=== PATIENT | male | born 1970 | race Caucasian/White ===

== ENCOUNTER 2023-02-05 17:22 | Emergency (ER) | payer OTHER ==
[~2023-02-05] VITALS: Ht 177.8 cm; Wt 93.4 kg
== END 2023-02-05 19:23 | disposition home or self-care (01) ==
LOC: ED 17:22
DX: M25.532 Pain in left wrist (principal); Z90.49 Acquired absence of other specified parts of digestive tract; Z87.891 Personal history of nicotine dependence

== ENCOUNTER 2023-03-07 12:27 | Emergency (ER) | payer OTHER ==
[~2023-03-07] VITALS: Ht 175.2 cm; Wt 97.5 kg
[2023-03-07] MEDS ORDERED: CYCLOBENZAPRINE5 M3 PO ×2 (13:47→14:05)
== END 2023-03-07 13:56 | disposition home or self-care (01) ==
LOC: ED 12:27
DX: M54.32 Sciatica, left side (principal); Z90.49 Acquired absence of other specified parts of digestive tract; Z98.890 Other specified postprocedural states

== ENCOUNTER → 2023-09-14 | Outpatient (CLI) | payer OTHER ==
[~2023-09-14] MED LIST: CYCLOBENZAPRINE5 M3 PO
[2023-09-14 15:09] LABS: BASO # 0.1 10*3/uL (0.0-0.1); BASO % 1.2 % (0.0-1.0); EOS # 0.2 10*3/uL (0.0-0.4); HEMATOCRIT 45.2 % (42.0-52.0); LYMPH # 3.4 10*3/uL (1.3-4.4); LYMPH % 30.8 % (27.0-41.0); MEAN CELL VOLUME 96.2 fl (80.0-94.0); MEAN CORPUSCULAR HGB 32.8 pg (27.0-31.0); MEAN CORPUSCULAR HGB CONC 34.1 g/dl (33.0-37.0); MEAN PLATELET VOLUME 10.5 fl (9.6-12.3); MONO # 0.8 10*3/uL (0.1-1.0); MONO % 7.1 % (3.0-9.0); NEUT # 6.5 10*3/uL (2.3-7.9); NEUT % 58.5 % (47.0-73.0); PLATELET COUNT AUTOMATED 228 10*3/uL (130-400); RED CELL DISTRI WIDTH 13.6 % (0-14.5)
[2023-09-14 15:40] LABS: ALKALINE PHOSPHATASE 88 U/L (46-116); BUN 8 mg/dl (9-23); CHLORIDE 107 mmol/L (98-107); CHOLESTEROL 149 mg/dL (<200); LDL CHOLESTEROL 95 mg/dL (9-159); POTASSIUM 3.9 mmol/L (3.4-5.1); SGPT/ALT 18 U/L (5-49); TOTAL PROTEIN 7.4 gm/dL (6.0-8.0); TRIGLYCERIDES 62 mg/dl (<150)
[2023-09-14 15:41] LABS: VITAMIN D, 25-HYDROXY 27.6 ng/mL (30-100)
== END | disposition home or self-care (01) ==
LOC: LAB 14:45
PROVIDERS: ATTEND Internal Medicine
DX: R07.81 Pleurodynia (principal); M25.532 Pain in left wrist; M25.552 Pain in left hip; E66.9 Obesity, unspecified; Z00.00 Encounter for general adult medical examination without abnormal findings; E56.9 Vitamin deficiency, unspecified

== ENCOUNTER → 2023-10-16 | Outpatient (CLI) | payer OTHER | END | disposition home or self-care (01) | LOC: RAD 12:21 | PROVIDERS: ATTEND Internal Medicine | DX: M25.532 Pain in left wrist (principal) ==

== ENCOUNTER → 2023-10-28 | Outpatient (CLI) | payer OTHER | LOC: CT 08:29 | PROVIDERS: ATTEND Internal Medicine | DX: S52.615D Nondisplaced fracture of left ulna styloid process, subsequent encounter for closed fracture with routine healing (principal); M25.532 Pain in left wrist; X58.XXXD Exposure to other specified factors, subsequent encounter ==

== ENCOUNTER 2023-12-30 21:50 | Emergency (ER) | payer OTHER ==
[~2023-12-30] VITALS: Ht 180.3 cm; Wt 90.7 kg
[2023-12-30] MEDS ORDERED: Cyclobenzaprine Hydrochlorid 10 MG TAB PO ONE (22:20)
[2023-12-30] MEDS ORDERED: LIDOCAINE 1 EA PATCH T ONE (22:20)
[2023-12-30] MEDS ORDERED: Dexamethasone Sodium Phospha 20 MG/5 ML VIAL IM ONE (22:20)
[2023-12-30] MEDS ORDERED: MEDROL DOSEPAK4 MG PO (23:40)
[2023-12-30] MEDS ORDERED: CYCLOBENZAPRINE5 M3 PO (23:40)
== END 2023-12-31 00:03 | disposition home or self-care (01) ==
LOC: ED 21:50
DX: M62.838 Other muscle spasm (principal); Z90.49 Acquired absence of other specified parts of digestive tract; Z87.891 Personal history of nicotine dependence

== ENCOUNTER → 2024-03-26 | Outpatient (CLI) | payer OTHER ==
[~2024-03-26] MED LIST changes: +MEDROL DOSEPAK4 MG PO
== END | disposition home or self-care (01) ==
LOC: RAD 12:22
PROVIDERS: ATTEND Internal Medicine
DX: R05.9 Cough, unspecified (principal)

== ENCOUNTER 2024-04-03 00:46 | Emergency (ER) | payer OTHER ==
[~2024-04-03] VITALS: Wt 90.7 kg
[2024-04-03 01:12] LABS: BASO # 0.1 10*3/uL (0.0-0.1); BASO % 1.3 % (0.0-1.0); EOS # 0.2 10*3/uL (0.0-0.4); EOS % 2.4 % (1.0-4.0); HEMATOCRIT 47.6 % (42.0-52.0); MEAN CORPUSCULAR HGB 32.4 pg (27.0-31.0); MEAN CORPUSCULAR HGB CONC 32.4 g/dl (33.0-37.0); MEAN PLATELET VOLUME 10.8 fl (9.6-12.3); MONO # 0.8 10*3/uL (0.1-1.0); MONO % 9.2 % (3.0-9.0); NEUT # 4.9 10*3/uL (2.3-7.9); NEUT % 56.6 % (47.0-73.0); PLATELET COUNT AUTOMATED 220 10*3/uL (130-400); RED BLOOD COUNT 4.76 10*6/uL (4.50-5.90); RED CELL DISTRI WIDTH 13.5 % (0-14.5); WHITE BLOOD COUNT 8.7 10*3/uL (4.8-10.8)
[2024-04-03 01:23] LABS: ACT PARTIAL THROMBO TIME 29.1 SECONDS (20.0-32.1)
[2024-04-03 01:33] LABS: ALKALINE PHOSPHATASE 93 U/L (46-116); BUN 5 mg/dl (9-23); CHLORIDE 106 mmol/L (98-107); POTASSIUM 3.8 mmol/L (3.4-5.1); SGPT/ALT 16 U/L (5-49); TOTAL PROTEIN 7.2 gm/dL (6.0-8.0)
[2024-04-03] MEDS ORDERED: methylPREDNISolone sod succ 125 MG VIAL IV ONE (04:30)
[2024-04-03] MEDS ORDERED: PREDNISONE20 M1 PO (04:32)
[2024-04-03] MEDS ORDERED: ZITHROMAX250 MG PO (04:32)
== END 2024-04-03 04:54 | disposition home or self-care (01) ==
LOC: ED 00:46
PROVIDERS: Internal Medicine
DX: J40 Bronchitis, not specified as acute or chronic (principal); D75.89 Other specified diseases of blood and blood-forming organs; Z90.89 Acquired absence of other organs

== ENCOUNTER → 2024-04-23 | Outpatient (CLI) | payer OTHER ==
[~2024-04-23] MED LIST changes: +Albuterol Sulfate 2.5 MG/3 ML VIAL NEB ONE; +PREDNISONE20 M1 PO; +ZITHROMAX250 MG PO
== END | disposition home or self-care (01) ==
LOC: CP 00:42
PROVIDERS: ATTEND Internal Medicine
DX: R05.9 Cough, unspecified (principal); F17.210 Nicotine dependence, cigarettes, uncomplicated

== ENCOUNTER 2024-04-26 02:04 | Emergency (ER) | payer OTHER ==
[~2024-04-26] VITALS: Ht 172.7 cm; Wt 77.1 kg
[~2024-04-26 02:04] MED LIST changes: -Albuterol Sulfate 2.5 MG/3 ML VIAL NEB ONE
[2024-04-26 02:40] LABS: BASO # 0.1 10*3/uL (0.0-0.1); BASO % 0.5 % (0.0-1.0); EOS # 0.3 10*3/uL (0.0-0.4); EOS % 1.6 % (1.0-4.0); HEMATOCRIT 51.3 % (42.0-52.0); MEAN CELL VOLUME 97.3 fl (80.0-94.0); MEAN CORPUSCULAR HGB 32.4 pg (27.0-31.0); MEAN CORPUSCULAR HGB CONC 33.3 g/dl (33.0-37.0); MEAN PLATELET VOLUME 10.5 fl (9.6-12.3); MONO # 0.8 10*3/uL (0.1-1.0); MONO % 4.9 % (3.0-9.0); NEUT # 13.1 10*3/uL (2.3-7.9); NEUT % 76.6 % (47.0-73.0); PLATELET COUNT AUTOMATED 247 10*3/uL (130-400); RED BLOOD COUNT 5.27 10*6/uL (4.50-5.90); RED CELL DISTRI WIDTH 13.9 % (0-14.5); WHITE BLOOD COUNT 17.1 10*3/uL (4.8-10.8)
[2024-04-26 03:13] LABS: BUN < 5 mg/dl (9-23); CHLORIDE 106 mmol/L (98-107); ETHYL ALCOHOL 27.9 mg/dl (<3); POTASSIUM 3.6 mmol/L (3.4-5.1)
== END 2024-04-26 03:44 | disposition home or self-care (01) ==
LOC: ED 02:04
PROVIDERS: Internal Medicine
DX: F32.A Depression, unspecified (principal); D72.829 Elevated white blood cell count, unspecified; Z90.49 Acquired absence of other specified parts of digestive tract; Z79.899 Other long term (current) drug therapy

== ENCOUNTER 2024-04-30 23:36 | Emergency (ER) | payer OTHER ==
[~2024-04-30] VITALS: Ht 172.7 cm; Wt 75.4 kg
[2024-04-30] MEDS ORDERED: AIRSUPRA 90-810.7 GM INH (23:42)
[2024-05-01] MEDS ORDERED: Ketorolac Tromethamine 60 MG/2 ML VIAL IM ONE (00:10)
== END 2024-05-01 00:19 | disposition home or self-care (01) ==
LOC: ED 23:36
DX: S60.211A Contusion of right wrist, initial encounter (principal); Z90.49 Acquired absence of other specified parts of digestive tract; W20.8XXA Other cause of strike by thrown, projected or falling object, initial encounter; Y93.89 Activity, other specified; Y92.89 Other specified places as the place of occurrence of the external cause; Y99.8 Other external cause status

== ENCOUNTER 2024-05-07 19:49 | Emergency (ER) | payer OTHER ==
[~2024-05-07] VITALS: Ht 180.3 cm; Wt 73.3 kg
[~2024-05-07 19:49] MED LIST changes: +AIRSUPRA 90-810.7 GM INH
[2024-05-07 20:23] LABS: BASO # 0.1 10*3/uL (0.0-0.1); BASO % 0.7 % (0.0-1.0); EOS # 0.2 10*3/uL (0.0-0.4); EOS % 1.1 % (1.0-4.0); HEMATOCRIT 49.7 % (42.0-52.0); MEAN CELL VOLUME 97.3 fl (80.0-94.0); MEAN CORPUSCULAR HGB 31.7 pg (27.0-31.0); MEAN CORPUSCULAR HGB CONC 32.6 g/dl (33.0-37.0); MEAN PLATELET VOLUME 10.4 fl (9.6-12.3); MONO % 7.5 % (3.0-9.0); NEUT # 9.5 10*3/uL (2.3-7.9); NEUT % 69.2 % (47.0-73.0); PLATELET COUNT AUTOMATED 274 10*3/uL (130-400); RED BLOOD COUNT 5.11 10*6/uL (4.50-5.90); RED CELL DISTRI WIDTH 13.4 % (0-14.5); WHITE BLOOD COUNT 13.7 10*3/uL (4.8-10.8)
[2024-05-07 20:42] LABS: BUN < 5 mg/dl (9-23); CHLORIDE 105 mmol/L (98-107); POTASSIUM 3.5 mmol/L (3.4-5.1)
[2024-05-07] MEDS ORDERED: PREDNISONE20 M1 PO (21:24)
[2024-05-07] MEDS ORDERED: AVPAK AZITHROM250 M1 PO (21:24)
[2024-05-07] MEDS ORDERED: methylPREDNISolone sod succ 125 MG VIAL IM ONE (21:30)
[2024-05-07] MEDS ORDERED: AZITHROMYCIN 250 MG TAB PO ONE (21:30)
== END 2024-05-07 21:38 | disposition home or self-care (01) ==
LOC: ED 19:49
PROVIDERS: Nurse Practitioner Family
DX: J40 Bronchitis, not specified as acute or chronic (principal); Z20.822 Contact with and (suspected) exposure to COVID-19; F32.A Depression, unspecified; D72.89 Other specified disorders of white blood cells; F17.200 Nicotine dependence, unspecified, uncomplicated; Z90.49 Acquired absence of other specified parts of digestive tract

== ENCOUNTER 2024-06-23 00:45 | Emergency (ER) | payer OTHER ==
[~2024-06-23] VITALS: Wt 70.6 kg
[~2024-06-23 00:45] MED LIST changes: +AVPAK AZITHROM250 M1 PO
[2024-06-23] MEDS ORDERED: Albuterol Sulf/Ipratropium 3 ML VIAL NEB ONE (00:50)
[2024-06-23] MEDS ORDERED: methylPREDNISolone sod succ 125 MG VIAL IM ONE (00:50)
[2024-06-23 01:05] LABS: BASO # 0.1 10*3/uL (0.0-0.1); BASO % 0.9 % (0.0-1.0); EOS # 0.2 10*3/uL (0.0-0.4); EOS % 1.7 % (1.0-4.0); HEMATOCRIT 44.5 % (42.0-52.0); MEAN CELL VOLUME 97.6 fl (80.0-94.0); MEAN CORPUSCULAR HGB 32.5 pg (27.0-31.0); MEAN CORPUSCULAR HGB CONC 33.3 g/dl (33.0-37.0); MEAN PLATELET VOLUME 10.5 fl (9.6-12.3); MONO # 0.8 10*3/uL (0.1-1.0); MONO % 7.8 % (3.0-9.0); NEUT % 68.1 % (47.0-73.0); PLATELET COUNT AUTOMATED 216 10*3/uL (130-400); RED BLOOD COUNT 4.56 10*6/uL (4.50-5.90); RED CELL DISTRI WIDTH 14.1 % (0-14.5); WHITE BLOOD COUNT 10.2 10*3/uL (4.8-10.8)
[2024-06-23 01:23] LABS: BUN 9 mg/dl (9-23); CHLORIDE 105 mmol/L (98-107); POTASSIUM 3.4 mmol/L (3.4-5.1)
== END 2024-06-23 03:23 | disposition left against medical advice (07) ==
LOC: ED 00:45
PROVIDERS: Internal Medicine
DX: R06.02 Shortness of breath (principal); Z53.29 Procedure and treatment not carried out because of patient's decision for other reasons; Z90.49 Acquired absence of other specified parts of digestive tract; Z79.899 Other long term (current) drug therapy

== ENCOUNTER 2024-07-30 23:48 | Emergency (ER) | payer OTHER ==
[~2024-07-30] VITALS: Ht 177.8 cm; Wt 68.0 kg
== END 2024-07-31 02:46 | disposition home or self-care (01) ==
LOC: ED 23:48
DX: S66.912A Strain of unspecified muscle, fascia and tendon at wrist and hand level, left hand, initial encounter (principal); S60.222A Contusion of left hand, initial encounter; F17.200 Nicotine dependence, unspecified, uncomplicated; Z79.899 Other long term (current) drug therapy; W22.03XA Walked into furniture, initial encounter; Y93.89 Activity, other specified; Y92.89 Other specified places as the place of occurrence of the external cause; Y99.8 Other external cause status

== ENCOUNTER → 2024-08-08 | Outpatient (CLI) | payer OTHER | END | disposition home or self-care (01) | LOC: RAD 15:34 | PROVIDERS: ATTEND Internal Medicine | DX: M25.532 Pain in left wrist (principal) ==

== ENCOUNTER 2024-09-15 23:54 | Emergency (ER) | payer OTHER ==
[~2024-09-15] VITALS: Ht 165.1 cm
[2024-09-16] MEDS ORDERED: Ketorolac Tromethamine 60 MG/2 ML VIAL IM ONE (00:50)
== END 2024-09-16 01:07 | disposition home or self-care (01) ==
LOC: ED 23:54
DX: R07.81 Pleurodynia (principal); Z79.899 Other long term (current) drug therapy; Z90.49 Acquired absence of other specified parts of digestive tract

== ENCOUNTER 2024-09-21 22:53 | Emergency (ER) | payer OTHER ==
[~2024-09-21] VITALS: Ht 167.6 cm; Wt 68.0 kg
[2024-09-21] MEDS ORDERED: methylPREDNISolone sod succ 125 MG VIAL IM ONE (23:25)
== END 2024-09-21 23:43 | disposition home or self-care (01) ==
LOC: ED 22:53
DX: R20.2 Paresthesia of skin (principal); R20.0 Anesthesia of skin; Z79.899 Other long term (current) drug therapy; Z90.49 Acquired absence of other specified parts of digestive tract

== ENCOUNTER 2024-10-08 00:50 | Emergency (ER) | payer OTHER ==
[~2024-10-08] VITALS: Ht 175.2 cm; Wt 81.6 kg
[2024-10-08] MEDS ORDERED: METHOCARBAMOL 750 MG TAB PO ONE (01:00)
[2024-10-08] MEDS ORDERED: Ketorolac Tromethamine 30 MG/ML VIAL IM ONE (01:00)
[2024-10-08] MEDS ORDERED: Dexamethasone Sodium Phospha 20 MG/5 ML VIAL IM ONE (01:00)
[2024-10-08] MEDS ORDERED: METHOCARBAMOL750 M1 PO (01:01)
[2024-10-08] MEDS ORDERED: PREDNISONE20 M1 PO (01:01)
== END 2024-10-08 01:24 | disposition home or self-care (01) ==
LOC: ED 00:50
DX: S16.1XXA Strain of muscle, fascia and tendon at neck level, initial encounter (principal); Z79.899 Other long term (current) drug therapy; X58.XXXA Exposure to other specified factors, initial encounter; Y93.89 Activity, other specified; Y92.89 Other specified places as the place of occurrence of the external cause; Y99.8 Other external cause status

== ENCOUNTER 2024-12-06 22:12 | Emergency (ER) | payer OTHER ==
[~2024-12-06] VITALS: Ht 177.8 cm; Wt 72.6 kg
[~2024-12-06 22:12] MED LIST changes: +METHOCARBAMOL750 M1 PO
[2024-12-06] MEDS ORDERED: AMOXICILLIN500 M2 PO (23:41)
[2024-12-06] MEDS ORDERED: AMOXICILLIN 500 MG CAP PO ONE (23:45)
== END 2024-12-06 23:48 | disposition home or self-care (01) ==
LOC: ED 22:12
DX: K04.7 Periapical abscess without sinus (principal); K02.9 Dental caries, unspecified; F32.A Depression, unspecified

== ENCOUNTER 2024-12-22 14:18 | Emergency (ER) | payer OTHER ==
[~2024-12-22] VITALS: Ht 170.1 cm; Wt 72.6 kg
[~2024-12-22 14:18] MED LIST changes: +AMOXICILLIN500 M2 PO
[2024-12-22] MEDS ORDERED: SODIUM CHLORIDE 0.9% 1,000 ML IV ONE (15:40)
[2024-12-22] MEDS ORDERED: Ondansetron Hydrochloride 4 MG/2 ML VIAL IV ONE (15:40)
[2024-12-22] MEDS ORDERED: diphenhydrAMINE hydrochloride 50 MG/ML VIAL IV ONE (15:40)
[2024-12-22] MEDS ORDERED: Dexamethasone Sodium Phospha 10 MG/1 ML VIAL IV ONE (16:50)
[2024-12-22] MEDS ORDERED: Motrin,Rufen800 MG PO (18:22)
== END 2024-12-22 18:36 | disposition home or self-care (01) ==
LOC: ED 14:18
DX: R51.9 Headache, unspecified (principal); F32.A Depression, unspecified

== ENCOUNTER → 2025-01-27 | Outpatient (CLI) | payer OTHER ==
[~2025-01-27] MED LIST changes: +Motrin,Rufen800 MG PO
== END | disposition home or self-care (01) ==
LOC: CT 12:59
PROVIDERS: ATTEND Family Medicine
DX: Z12.2 Encounter for screening for malignant neoplasm of respiratory organs (principal); Z87.891 Personal history of nicotine dependence

== ENCOUNTER 2025-02-11 22:41 | Emergency (ER) | payer OTHER ==
[~2025-02-11] VITALS: Ht 177.8 cm; Wt 72.6 kg
[2025-02-11 23:14] LABS: BASO # 0.1 10*3/uL (0.0-0.1); BASO % 0.9 % (0.0-1.0); EOS # 0.3 10*3/uL (0.0-0.4); EOS % 2.3 % (1.0-4.0); MEAN CELL VOLUME 100.4 fl (80.0-94.0); MEAN CORPUSCULAR HGB 32.5 pg (27.0-31.0); MEAN PLATELET VOLUME 10.1 fl (9.6-12.3); MONO # 0.8 10*3/uL (0.1-1.0); MONO % 6.9 % (3.0-9.0); NEUT # 7.0 10*3/uL (2.3-7.9); NEUT % 58.6 % (47.0-73.0); NUCLEATED RED BLOOD CELL 0.0 % (0.0-0.0); NUCLEATED RED BLOOD CELL 0.0 10*3/uL (0.0-0.0); PLATELET COUNT AUTOMATED 254 10*3/uL (130-400); RED CELL DISTRI WIDTH 13.7 % (0-14.5)
[2025-02-11 23:38] LABS: BUN 15 mg/dl (9-23)
== END 2025-02-12 01:10 | disposition home or self-care (01) ==
LOC: ED 22:41
PROVIDERS: Internal Medicine
DX: R07.89 Other chest pain (principal); D75.89 Other specified diseases of blood and blood-forming organs; Z90.49 Acquired absence of other specified parts of digestive tract

== ENCOUNTER 2025-04-12 17:38 | Emergency (ER) | payer OTHER | END 2025-04-12 21:22 | disposition home or self-care (01) | LOC: ED 17:38 | DX: S63.502A Unspecified sprain of left wrist, initial encounter (principal); R20.2 Paresthesia of skin; F17.290 Nicotine dependence, other tobacco product, uncomplicated; W22.8XXA Striking against or struck by other objects, initial encounter; Y93.89 Activity, other specified; Y92.89 Other specified places as the place of occurrence of the external cause; Y99.8 Other external cause status ==